=== PATIENT | female | born 1955 | race Caucasian/White ===

== ENCOUNTER → 2023-02-21 14:09 | Outpatient (CLI) | payer MEDICARE, OTHER, SELFPAY ==
[2023-02-25 03:16] LABS: Lipoprotein (a) 13.5 nmol/L (<75.0)
== END ==
PROVIDERS: Family Provider Family Medicine; PCP Family Medicine; Referring Provider Internal Medicine Cardiovascular Disease; Visit Provider Internal Medicine Cardiovascular Disease
DX: E78.00 Pure hypercholesterolemia, unspecified (principal); R94.31 Abnormal electrocardiogram [ECG] [EKG]
CPT/HCPCS: 36415; 83695